=== PATIENT | female | born 1995 | race Caucasian/White ===

== ENCOUNTER 2020-02-03 00:39 | Emergency (ER) | payer BC, MEDICAID ==
[2020-02-03] MEDS ORDERED: Bacitracin Oint 1 GM U/D Packet TOP ONE (00:52)
[2020-02-03] MEDS ORDERED: Lidocaine 1% 20 ML MDV INJECT ONE (00:52)
[2020-02-03 01:30] VITALS: BP 155/86; PULSE 121
--- NOTE | 2020-02-03 01:46 | EDM.PDOC ---
ED HPI GENERAL MEDICAL PROBLEM - General Chief Complaint: Laceration Stated Complaint: CUT ON THIGH Time Seen by Provider: 02/03/20 01:38 Source of Information: Reports: Patient History Limitations: Reports: No Limitations - History of Present Illness INITIAL COMMENTS - FREE TEXT/NARRATIVE: pt has 2 laceration on the left thigh posterior . She broke a pickle jar and then landed on some of the glass. She has one that is 3 inches long. THE OTHER IS 4 INCHES IN LENGTH. tHESE ARE DEEP TO THE SUBQ. 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 - Past Surgical History GI Surgical History: Reports: Cholecystectomy Social & Family History - Tobacco Use Tobacco Use Status *Q: Current Every Day Tobacco User Years of Tobacco use: 7 Packs/Tins Daily: 0.7 - Caffeine Use Caffeine Use: Reports: Soda - Alcohol Use Days Per Week of Alcohol Use: 2 Number of Drinks Per Day: 3 Total Drinks Per Week: 6 - Recreational Drug Use Recreational Drug Use: Yes Drug Use in Last 12 Months: Yes Recreational Drug Type: Reports: Marijuana/Hashish Recreational Drug Use Frequency: Weekly ED ROS GENERAL - Review of Systems Review Of Systems: See Below Constitutional: Reports: No Symptoms HEENT: Reports: No Symptoms Respiratory: Reports: No Symptoms Cardiovascular: Reports: No Symptoms Endocrine: Reports: No Symptoms GI/Abdominal: Reports: No Symptoms Musculoskeletal: Reports: Other ( LACERATIONS ON THE LEFT POSTERIOR THIGH. ) Skin: Reports: No Symptoms ED EXAM, SKIN/RASH Exam: See Below Text/Narrative:: PT HAS A INJURY OF 2 LACERATIONS AFTER SHE FELL ON A BROKEN PICKLE JAR. SHE HAS 3 INCHES IN LENGTH AND THE OTHER IS 4 INCHES LONG. Exam Limited By: No Limitations General Appearance: Alert, Anxious Extremities: Other (PT HAS A 3 INCH LACERATION ON THE LEFT POST THIGH AND SHE HAS A 4 INCH LACERATION ON THE LEFT POST THIGH. ) Neurological: Alert, Oriented, Normal Cognition Course - Vital Signs Last Recorded V/S: Last Vital Signs Temp 36.6 C 02/03/20 01:26 Pulse 121 H 02/03/20 01:26 Resp 20 02/03/20 01:26 BP 155/86 H 02/03/20 01:26 Pulse Ox 96 02/03/20 01:26 - Orders/Labs/Meds Meds: Medications Discontinued Medications Generic Name Dose Route Start Last Admin Trade Name Mac PRN Reason Stop Dose Admin Bacitracin 1 dose 02/03/20 00:52 02/03/20 00:58 Bacitracin Oint 1 Gm TOP 02/03/20 00:53 1 dose ONETIME ONE Administration Lidocaine HCl 20 ml 02/03/20 00:52 02/03/20 00:57 Xylocaine 1% INJECT 02/03/20 00:53 20 ml ONETIME ONE Administration - Re-Assessments/Exams Free Text/Narrative Re-Assessment/Exam: 02/03/20 01:43 tHE AREA WAS IRRIGATED WITH SALINE AND INFILTRATED WITH LIDOCAINE. tHE WOUNDS WAS SCRUBBED WELL. . tHE WOUNDS WERE DRESSED WITH BACATRACIN. sHE IS CURRENT WITH HER TETANUS. WOUNDS WERE CLOSED WITH 5-0 CHROMIC AND 5-0 PROLENE Departure - Departure Time of Disposition: 01:46 Disposition: Home, Self-Care 01 Condition: Fair Clinical Impression: Lacerations of multiple sites of leg - Discharge Information Referrals: PCP,None [Primary Care Provider] - Care Plan Goals: KEEP DRY, COVER WHEN SHOWERING, SUTURE REMOVAL IN 7-8 DAYS. NO FURTHER OINTMENTS. Sepsis Event Note (ED) - Evaluation Sepsis Screening Result: No Definite Risk - Focused Exam Vital Signs: Vital Signs Temp Pulse Resp BP Pulse Ox 02/03/20 01:26 36.6 C 121 H 20 155/86 H 96
== END 2020-02-03 01:52 | disposition home or self-care (01) ==
LOC: JP.ED 00:39
DX: S71.112A Laceration without foreign body, left thigh, initial encounter (principal); F17.210 Nicotine dependence, cigarettes, uncomplicated; Z90.49 Acquired absence of other specified parts of digestive tract; Z88.5 Allergy status to narcotic agent; Z79.899 Other long term (current) drug therapy; W25.XXXA Contact with sharp glass, initial encounter
CPT/HCPCS: 12035; 99282; J2001

== ENCOUNTER 2020-07-26 12:55 | Emergency (ER) | payer MEDICAID ==
[2020-07-26 13:20] VITALS: BP 148/86; PULSE 99
--- NOTE | 2020-07-26 13:37 | EDM.PDOC ---
ED HPI GENERAL MEDICAL PROBLEM - General Chief Complaint: Lower Extremity Injury/Pain Stated Complaint: FELL ON SUNDAY LEFT FOOT IS HURTING Time Seen by Provider: 07/26/20 13:25 Source of Information: Reports: Patient, Old Records, RN History Limitations: Reports: No Limitations - History of Present Illness INITIAL COMMENTS - FREE TEXT/NARRATIVE: 25 yo female stepped off the edge of the sidewalk 2 d ago and injured her L foot and ankle. The foot is more painful than the ankle. Not getting better so came here today. Has not been to the clinic. Onset: Sudden Onset Date: 07/24/20 Duration: Day(s): (2), Constant Location: Reports: Lower Extremity, Left Quality: Reports: Ache Severity: Mild (at rest, worse with movement.) Improves with: Reports: Rest Worsens with: Reports: Movement (or weight bearing) Context: Reports: Trauma Associated Symptoms: Reports: No Other Symptoms Treatments GROUNDS PERSON: Reports: Other (see below) (none) - Related Data Allergies Allergy/AdvReac Type Severity Reaction Status Date / Time acetaminophen [From Vicodin] Allergy Vomiting Verified 07/26/20 13:24 hydrocodone bitartrate Allergy Vomiting Verified 07/26/20 13:24 [From Vicodin] Home Meds: Home Meds . 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 - Past Surgical History GI Surgical History: Reports: Cholecystectomy Social & Family History - Tobacco Use Tobacco Use Status *Q: Current Every Day Tobacco User Years of Tobacco use: 8 Packs/Tins Daily: 0.5 - Caffeine Use Caffeine Use: Reports: Soda - Recreational Drug Use Recreational Drug Use: Yes Recreational Drug Type: Reports: Marijuana/Hashish Recreational Drug Use Frequency: Rarely Review of Systems - Review of Systems Review Of Systems: See Below Constitutional: Reports: No Symptoms Musculoskeletal: Reports: Foot Pain (Left), Other (swelling of L foot) Skin: Reports: Bruising (L foot and lateral ankle), Wound (abrasion L anterior knee) Neurological: Reports: No Symptoms ED EXAM, GENERAL - Physical Exam Exam: See Below Exam Limited By: No Limitations General Appearance: Alert, WD/WN, No Apparent Distress, Obese Extremities: Pedal Edema (L foot swollen), Other (tender dorsum of L foot). No: Non-Tender, No Pedal Edema, Michell's Sign, Increased Warmth, Redness Neurological: Alert, Oriented, CN II-XII Intact, Normal Cognition, No Motor/Sensory Deficits Psychiatric: Normal Affect, Normal Mood Skin Exam: Warm, Dry, Normal Color, No Rash, Wound/Incision (abrasion L ant knee, no sign of infection) ED TRAUMA EXTREMITY PROCEDURES - Splinting Left Lower Extremity Splint Site: L foot Pre-Procedure NV Status: Normal Post-Procedure NV Status: Normal Splint Material: Other (Ortho Glass) Splint Design: Other (posterior splint) Applied & Form Fitted By: Provider Provider Post-Splint Application NV Check: NV Status Normal, Good Position Complications: No Course - Vital Signs Last Recorded V/S: Last Vital Signs Temp 36.8 C 07/26/20 13:24 Pulse 99 07/26/20 13:24 Resp 17 07/26/20 13:24 BP 148/86 H 07/26/20 13:24 Pulse Ox 96 07/26/20 13:24 - Orders/Labs/Meds Orders: Active Orders 24 hr Category Date Time Status Notify Provider Consults [RC] ASDIRECTED Care 07/26/20 14:07 Ordered Consult to Orthopedics [CONS] Routine Cons 07/26/20 14:06 Ordered - Radiology Interpretation Free Text/Narrative:: L foot X-ray- Departure - Departure Time of Disposition: 14:25 Disposition: Home, Self-Care 01 Condition: Fair Clinical Impression: Metatarsal bone fracture Fracture of metatarsal of left foot, closed Qualifiers: Encounter type: initial encounter Metatarsal bone: second Fracture alignment: nondisplaced Qualified Code(s): S92.325A - Nondisplaced fracture of second metatarsal bone, left foot, initial encounter for closed fracture Clinical Impression: (Ruled Out): Metatarsal boss of left foot - Discharge Information *PRESCRIPTION DRUG MONITORING PROGRAM REVIEWED*: Not Applicable *COPY OF PRESCRIPTION DRUG MONITORING REPORT IN PATIENT IAIN: Not Applicable Instructions: Cast or Splint Care, Adult, [id number] Referrals: PCP,None [Primary Care Provider] - Forms: ED Department Discharge Additional Instructions: Keep foot elevated above your heart. Wear your splint at all times. Take acetaminophen and/or ibuprofen as needed for pain relief. Crutch walking and no weight bearing. F/U with orthopedics this week as scheduled. Sepsis Event Note (ED) - Evaluation Sepsis Screening Result: No Definite Risk - Focused Exam Vital Signs: Vital Signs Temp Pulse Resp BP Pulse Ox 07/26/20 13:24 36.8 C 99 17 148/86 H 96 07/26/20 13:20 36.8 C 99 17 148/86 H 96 - My Orders Last 24 Hours: My Active Orders 07/26/20 14:06 Consult to Orthopedics [CONS] Routine 07/26/20 14:07 Notify Provider Consults [RC] ASDIRECTED - Assessment/Plan Last 24 Hours: My Active Orders 07/26/20 14:06 Consult to Orthopedics [CONS] Routine 07/26/20 14:07 Notify Provider Consults [RC] ASDIRECTED
--- NOTE | 2020-07-26 14:09 | CR ---
Foot Comp Min 3V Lt CLINICAL HISTORY: Fall, pain FINDINGS: There is an irregular lucency in the base of the fourth metatarsal which is felt to represent a nondisplaced fracture. There is a questionable linear lucency through the base of the second metatarsal area IMPRESSION: Probable fracture through the base of the fourth metatarsal with possible second metatarsal head line fracture. Short-term follow-up foot x-ray recommended
== END 2020-07-26 14:44 | disposition home or self-care (01) ==
LOC: JP.ED 12:55
DX: S92.325A Nondisplaced fracture of second metatarsal bone, left foot, initial encounter for closed fracture (principal); R60.0 Localized edema; Z88.6 Allergy status to analgesic agent; Z88.5 Allergy status to narcotic agent; Z72.0 Tobacco use; W18.31XA Fall on same level due to stepping on an object, initial encounter
CPT/HCPCS: 29515; 73630-26-LT; 73630-LT; 99283; 99283-25